=== PATIENT | female | born 1980 | race American Indian/Alaskan Native ===

== ENCOUNTER 2017-02-21 16:34 | Emergency (ER) | payer SELFPAY ==
[2017-02-21] MEDS ORDERED: MOTRIN ONE (17:27)
[2017-02-21 17:28] VITALS: BP 145/90
[2017-02-21] MEDS ORDERED: MOTRIN PO ONE (17:28)
== END 2017-02-21 21:30 | disposition left against medical advice (07) ==
LOC: ED 16:34
DX: J02.9 Acute pharyngitis, unspecified (principal); Z53.21 Procedure and treatment not carried out due to patient leaving prior to being seen by health care provider

== ENCOUNTER 2019-09-01 17:49 | Emergency (ER) | payer SELFPAY ==
[2019-09-01] MEDS ORDERED: TORADOL IM ONE (21:45)
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
[2019-09-01 23:46] VITALS: BP 137/65
== END 2019-09-01 23:38 | disposition home or self-care (01) ==
LOC: ED 17:49
DX: S39.012A Strain of muscle, fascia and tendon of lower back, initial encounter (principal); S20.219A Contusion of unspecified front wall of thorax, initial encounter; V49.49XA Driver injured in collision with other motor vehicles in traffic accident, initial encounter; Y93.89 Activity, other specified; Y92.410 Unspecified street and highway as the place of occurrence of the external cause; Y99.8 Other external cause status
CPT/HCPCS: 71046; 72100; 96372; 99283; J1885